=== PATIENT | female | born 2000 | race Caucasian/White ===

== ENCOUNTER 2022-09-17 16:49 | Emergency (ER) | payer BC, SELFPAY ==
--- NOTE | ~2022-09-17 | CT_ITS ---
EXAMINATION: CT ABDOMEN AND PELVIS WITHOUT CONTRAST CLINICAL INFORMATION: Right-sided flank pain. COMPARISON: None available. TECHNIQUE: Multidetector volumetric imaging was performed from the superior aspect of the liver through the pubic symphysis. Sagittal and coronal reformatted images were obtained on the technologist's workstation. This CT examination was performed using dose optimization techniques as appropriate, variously including the following: *Automated exposure control *Adjustment of mA and/or kV according to patient size (this includes techniques or standardized protocols for targeted exams where dose is matched to indication/reason for exam; i.e. extremities or head) *Use of iterative reconstruction technique DLP: 881 mGy-cm FINDINGS: LUNG BASES: The visualized lung bases are unremarkable. LIVER, GALLBLADDER, AND BILIARY TREE: The liver is normal in size, shape, and attenuation. No focal hepatic lesion or biliary ductal dilatation is present. The gallbladder is unremarkable with no evidence of radiopaque gallstones, gallbladder wall thickening, or obvious pericholecystic inflammatory changes. PANCREAS: Unremarkable. SPLEEN: Unremarkable. ADRENAL GLANDS: Unremarkable. KIDNEYS AND URETERS: The kidneys are normal in size, shape, and attenuation. No hydronephrosis, hydroureter, or calculi seen. No perinephric stranding. BLADDER: Unremarkable. GASTROINTESTINAL TRACT: No acute abnormality. There is no bowel wall thickening /edema. There is no bowel obstruction. There is a large volume of stool in the colon. The appendix is normal . The small bowel loops are unremarkable. The stomach is normal. There is no hiatal hernia. ABDOMINAL WALL: No significant hernia is appreciated. LYMPH NODES: Normal. VASCULAR: Unremarkable. PELVIC VISCERA: Unremarkable. OSSEOUS STRUCTURES: Unremarkable. CT/CT abdomen pelvis wo IV con IMPRESSION: No significant abnormality. Fleischner guidelines were followed.
[2022-09-17 16:59] VITALS: BP 124/70; PULSE 97; RESP 16; TEMP 36.8; O2SAT 97; BMI 44.2
--- NOTE | 2022-09-17 17:07 | ED_ITS ---
HPI - Female Genitourinary General Chief complaint: Urogenital-Female Stated complaint: UTI? Time Seen by Provider: 09/17/22 18:35 Related Data Home Medications Medication Instructions Recorded Confirmed fluoxetine 20 mg capsule 1 cap PO QAM 09/18/22 09/18/22 norethindrone acetate 1.5 1 tab PO DAILY 09/18/22 09/18/22 mg-ethinyl estradiol 30 mcg tablet (Junel) Allergies Allergy/AdvReac Type Severity Reaction Status Date / Time No Known Allergies Allergy Verified 09/17/22 17:02 [facility] Past Medical History Medical History (Updated 09/18/22 @ 21:26 by Pancho Iniguez MD) Prediabetes Surgical History (Updated 09/18/22 @ 21:27 by Pancho Iniguez MD) No pertinent past surgical history Social History Social History (Updated 09/18/22 @ 21:38 by Pancho Iniguez MD) Household Members: None and Other Household Members Other:: college room mate Housing: Apartment Do you presently have visiting nurse or other home services: No Alcohol intake: current Patient Tobacco Use Status: Never used Tobacco Use of substances other than those prescribed or required for medical reasons: Yes Substance Use Type: Marijuana Currently Displaying Signs/Symptoms of Drug Intoxication Withdrawal: No Have you been hit, kicked, punched, or otherwise hurt by someone within the past year? If so, by whom?: No Do you feel safe in your current relationship?: Yes Is there a partner from a previous relationship who is making you feel unsafe now?: No Are you made to feel afraid or neglected: No Advance Directives: No Advance Directives Information Provided: Yes Do you have thoughts of harming others: None Do you have a plan to hurt others: No Plan Recently lost weight without trying: Unsure Nutrition Risks: No Nutritional Risk Patient : No : No Poor oral hygiene: No service: No Physical Exam Vital Signs: Vital Signs: Last Vital Signs Temp 98.7 F 09/17/22 23:40 Pulse 105 H 09/17/22 23:40 Resp 12 09/17/22 23:40 BP 139/78 09/17/22 23:40 Pulse Ox 98 09/17/22 23:40 O2 Del Method 09/17/22 23:40 BMI result Body Mass Index 44.2 Course Course Course Narrative: RME performed by Cathy Dupree PA-C. Patient is a 22 year old female presenting to the emergency department with UTI symptoms. Patient states that she has had these symptoms for a month and is now having bilateral flank pain. Patient states that she was seen at the urgent care who said she had a urinary infection but recommended she come to the hospital to have pyelonephritis ruled out. Patient states that she is able to tolerate PO fluids just fine. Labs + UA ordered. Patient placed back in the waiting room pending results and room availability. Patient was evaluated and seen by Dr. Mccord who discharged the patient per his own signed note. Medications Administered Discontinued Medications Generic Name Dose Route Start Last Admin Trade Name Freq PRN Reason Stop Dose Admin Sodium Chloride 1,000 mls @ 999 mls/hr 09/17/22 19:15 09/17/22 23:02 Ns IV 09/17/22 20:15 Infused .Q1H1M KALE Infusion Ceftriaxone Sodium 1 gm/ 50 mls @ 100 mls/hr 09/17/22 22:31 09/17/22 23:49 Sodium Chloride IV 09/17/22 23:00 Infused ONCE ONE Infusion Sodium Chloride 1,000 mls @ 999 mls/hr 09/17/22 22:45 09/17/22 23:49 Ns IV 09/17/22 23:45 Infused .Q1H1M KALE Infusion Ketorolac Tromethamine 30 mg 09/17/22 19:02 09/17/22 19:23 Ketorolac Tromethamine 30 Mg/Ml Vial IVPUSH 09/17/22 19:03 30 mg ONCE ONE Administration Ondansetron HCl 4 mg 09/17/22 19:02 09/17/22 19:23 Ondansetron Hcl 4 Mg/2 Ml Vial IVPUSH 09/17/22 19:03 4 mg ONCE ONE Administration Ondansetron HCl 4 mg 09/17/22 22:34 09/17/22 23:05 Ondansetron Hcl 4 Mg/2 Ml Vial IVPUSH 09/17/22 22:35 4 mg ONCE ONE Administration Medical Decision Making Lab Data 09/17/22 17:26 09/17/22 17:26 Labs: Lab Results 09/17/22 09/17/22 09/17/22 Range/Units 17:26 17:26 19:52 WBC 10.9 H (4.8-10.8) X10*3/uL RBC 4.83 (4.20-5.50) X10*6/uL Hgb 12.9 (12.0-16.0) g/dl Hct 40.0 (37.0-47.0) % MCV 82.8 (80.0-98.0) fL MCH 26.7 L (27.0-33.0) pg MCHC 32.3 (31.0-35.0) g/dl RDW 14.6 (11.0-16.0) % Plt Count 235 (160-400) X10*3/uL MPV 10.4 (9.4-12.3) fL Immature Gran % (Auto) 0.7 H (0.0-0.4) % Neut % (Auto) 77.3 H (45-73) % Lymph % (Auto) 13.3 L (20-40) % [place] % (Auto) 8.1 (2-11) % Eos % (Auto) 0.2 (0-4) % Baso % (Auto) 0.4 (0-2) % Lymph # (Auto) 1.5 (1.2-4.9) X10*3/uL [place] # (Auto) 0.9 (0.1-1.2) X10*3/uL Eos # (Auto) 0.0 (0.0-0.4) X10*3/uL Baso # (Auto) 0.0 (0.0-0.2) X10*3/uL Abs Immat Gran (auto) 0.08 H (0.00-0.03) X10*3/uL Absolute Neuts (auto) 8.4 H (2.0-8.3) x10*3/uL Absolute Nucleated RBC 0.000 (0.0-0.012) X10*3/uL Nucleated RBC % (auto) 0.0 (0.0-0.2) /100WBC Sodium 139 (135-145) mmol/L Potassium 4.1 (3.3-5.1) mmol/L Chloride 103 (96-108) mmol/L Carbon Dioxide 25 (22-29) mmol/L Anion Gap 15 (12-20) BUN 10 (9-16) mg/dL Creatinine 0.76 (0.5-1.4) mg/dL Estim Creat Clear Calc 148.4 Estimated GFR > 60 Random Glucose 80 (60-115) mg/dL Lactic Acid (0.5-2.0) mmol/L Calcium 9.0 (8.4-10.2) mg/dL Magnesium 1.8 (1.6-2.6) mg/dL Total Bilirubin 0.5 (0.0-1.0) mg/dL AST 13 (5-31) U/L ALT 18 (0-31) U/L Alkaline Phosphatase 83 (39-117) U/L Total Protein 6.9 (6.5-8.0) g/dL Albumin 4.1 (3.5-5.0) g/dL Beta HCG, Quant < 2 mIU/mL Urine Color Yellow Urine Appearance Cloudy Urine pH 6.5 (5.0-9.0) Ur Specific [place] 1.020 (1.005-1.025) Urine Protein 30 (1+) H (Neg-Trace) mg/dL Urine Glucose (UA) Negative (Negative) mg/dL Urine Ketones Trace (Negative) mg/dL Urine Blood Small (1+) H (Negative) Urine Nitrite Negative (Negative) Ur Leukocyte Esterase Large (3+) H (Negative) Urine RBC 6-10 H (0-2) /HPF Urine WBC >50 H (0-5) /HPF Ur Squamous Epith Cells 0-2 (0-2) /HPF Urine Bacteria 1+ (None Seen) Hyaline Casts 0-2 (0-2) /LPF 09/17/22 Range/Units 22:48 WBC (4.8-10.8) X10*3/uL RBC (4.20-5.50) X10*6/uL Hgb (12.0-16.0) g/dl Hct (37.0-47.0) % MCV (80.0-98.0) fL MCH (27.0-33.0) pg MCHC (31.0-35.0) g/dl RDW (11.0-16.0) % Plt Count (160-400) X10*3/uL MPV (9.4-12.3) fL Immature Gran % (Auto) (0.0-0.4) % Neut % (Auto) (45-73) % Lymph % (Auto) (20-40) % [place] % (Auto) (2-11) % Eos % (Auto) (0-4) % Baso % (Auto) (0-2) % Lymph # (Auto) (1.2-4.9) X10*3/uL [place] # (Auto) (0.1-1.2) X10*3/uL Eos # (Auto) (0.0-0.4) X10*3/uL Baso # (Auto) (0.0-0.2) X10*3/uL Abs Immat Gran (auto) (0.00-0.03) X10*3/uL Absolute Neuts (auto) (2.0-8.3) x10*3/uL Absolute Nucleated RBC (0.0-0.012) X10*3/uL Nucleated RBC % (auto) (0.0-0.2) /100WBC Sodium (135-145) mmol/L Potassium (3.3-5.1) mmol/L Chloride (96-108) mmol/L Carbon Dioxide (22-29) mmol/L Anion Gap (12-20) BUN (9-16) mg/dL Creatinine (0.5-1.4) mg/dL Estim Creat Clear Calc Estimated GFR Random Glucose (60-115) mg/dL Lactic Acid 0.7 (0.5-2.0) mmol/L Calcium (8.4-10.2) mg/dL Magnesium (1.6-2.6) mg/dL Total Bilirubin (0.0-1.0) mg/dL AST (5-31) U/L ALT (0-31) U/L Alkaline Phosphatase (39-117) U/L Total Protein (6.5-8.0) g/dL Albumin (3.5-5.0) g/dL Beta HCG, Quant mIU/mL Urine Color Urine Appearance Urine pH (5.0-9.0) Ur Specific [place] (1.005-1.025) Urine Protein (Neg-Trace) mg/dL Urine Glucose (UA) (Negative) mg/dL Urine Ketones (Negative) mg/dL Urine Blood (Negative) Urine Nitrite (Negative) Ur Leukocyte Esterase (Negative) Urine RBC (0-2) /HPF Urine WBC (0-5) /HPF Ur Squamous Epith Cells (0-2) /HPF Urine Bacteria (None Seen) Hyaline Casts (0-2) /LPF Discharge Plan Discharge Clinical Impression: Pyelonephritis Patient Disposition: Home, Self-Care Instructions: Kidney Infection (ED) Prescriptions: No Action norethindrone ac-eth estradiol [ (21)] 1.5-30 mg-mcg tablet 1 tab PO DAILY fluoxetine 20 mg capsule 1 cap PO QAM Referrals: Physician,Unknown J [Primary Care Provider] - Interventions: ED Discharge Assessment Last Done: 09/17/22 23:49 Discharge Date/Time: 09/17/22 23:50
[2022-09-17 17:30] LABS: MANUAL DIFF FLAG NO
[2022-09-17 17:35] LABS: Basophils Percent Auto 0.4 % (0-2); Eosinophils Percent Auto 0.2 % (0-4); Hemoglobin 12.9 g/dl (12.0-16.0); Imm Gran Abs Auto 0.08 X10*3/uL (0.00-0.03); Imm Gran Pct Auto 0.7 % (0.0-0.4); Lymphocytes Absolute Auto 1.5 X10*3/uL (1.2-4.9); Lymphocytes Percent Auto 13.3 % (20-40); Mean Corpuscular HGB Conc 32.3 g/dl (31.0-35.0); Mean Corpuscular Hemoglobin 26.7 pg (27.0-33.0); Mean Corpuscular Volume 82.8 fL (80.0-98.0); Mean Platelet Volume 10.4 fL (9.4-12.3); Monocytes Absolute Auto 0.9 X10*3/uL (0.1-1.2); Monocytes Percent Auto 8.1 % (2-11); Neutrophils Absolute Auto 8.4 x10*3/uL (2.0-8.3); Neutrophils Percent Auto 77.3 % (45-73); Platelet Count 235 X10*3/uL (160-400); Red Blood Count 4.83 X10*6/uL (4.20-5.50); Red Cell Distribution Width 14.6 % (11.0-16.0); White Blood Count 10.9 X10*3/uL (4.8-10.8)
[2022-09-17 17:54] LABS: Alanine Aminotransferase 18 U/L (0-31); Albumin Level 4.1 g/dL (3.5-5.0); Alkaline Phosphatase 83 U/L (39-117); Anion Gap 15 (12-20); Aspartate Amino Transferase 13 U/L (5-31); Bilirubin Total 0.5 mg/dL (0.0-1.0); Blood Urea Nitrogen 10 mg/dL (9-16); Carbon Dioxide 25 mmol/L (22-29); Chloride 103 mmol/L (96-108); Creatinine Clr Calc Pharmacy 148.4; Estimated Glomerular Filt Rate > 60; Glucose Random 80 mg/dL (60-115); Magnesium 1.8 mg/dL (1.6-2.6); Potassium 4.1 mmol/L (3.3-5.1); Sodium 139 mmol/L (135-145); Total Protein 6.9 g/dL (6.5-8.0)
[2022-09-17 17:55] LABS: HCG Quantitative < 2 mIU/mL
--- NOTE | 2022-09-17 19:02 | ED.FEMALEGU ---
HPI - Female Genitourinary General Chief complaint: Urogenital-Female Stated complaint: UTI? Time Seen by Provider: 09/17/22 18:35 Related Data Previous Rx's Medication Instructions Recorded ibuprofen 400 mg tablet 400 mg PO Q6H PRN pain #20 tabs 09/17/22 ondansetron 4 mg disintegrating 4 mg PO TID PRN nausea and 09/17/22 tablet vomiting 5 days #10 tabs sulfamethoxazole 800 1 tab PO BID pyelo 10 days #20 tabs 09/17/22 mg-trimethoprim 160 mg tablet (Bactrim DS) Allergies Allergy/AdvReac Type Severity Reaction Status Date / Time No Known Allergies Allergy Verified 09/17/22 17:02 PMF Social History Social History Advance Directives: No Advance Directives Information Provided: No Physical Exam Vital Signs: Vital Signs: Last Vital Signs Temp 98.3 F 09/17/22 16:59 Pulse 97 09/17/22 16:59 Resp 16 09/17/22 16:59 BP 124/70 09/17/22 16:59 Pulse Ox 97 09/17/22 16:59 O2 Del Method 09/17/22 16:59 BMI result Body Mass Index 44.2 Medications Administered Generic Name Dose Route Start Last Admin Trade Name Freq PRN Reason Stop Dose Admin Sodium Chloride 1,000 mls @ 999 mls/hr 09/17/22 22:45 09/17/22 23:05 Ns IV 09/17/22 23:45 999 mls/hr .Q1H1M KALE Administration Discontinued Medications Generic Name Dose Route Start Last Admin Trade Name Freq PRN Reason Stop Dose Admin Sodium Chloride 1,000 mls @ 999 mls/hr 09/17/22 19:15 09/17/22 23:02 Ns IV 09/17/22 20:15 Infused .Q1H1M KALE Infusion Ceftriaxone Sodium 1 gm/ 50 mls @ 100 mls/hr 09/17/22 22:31 09/17/22 23:05 Sodium Chloride IV 09/17/22 23:00 100 mls/hr ONCE ONE Administration Ketorolac Tromethamine 30 mg 09/17/22 19:02 09/17/22 19:23 Ketorolac Tromethamine 30 Mg/Ml Vial IVPUSH 09/17/22 19:03 30 mg ONCE ONE Administration Ondansetron HCl 4 mg 09/17/22 19:02 09/17/22 19:23 Ondansetron Hcl 4 Mg/2 Ml Vial IVPUSH 09/17/22 19:03 4 mg ONCE ONE Administration Ondansetron HCl 4 mg 09/17/22 22:34 09/17/22 23:05 Ondansetron Hcl 4 Mg/2 Ml Vial IVPUSH 09/17/22 22:35 4 mg ONCE ONE Administration Medical Decision Making Medical Decision Making [facility] Narrative: Positive nausea positive flank pain. CT scan of the abdomen pelvis did not show any acute evidence of kidney stone. No appendicitis noted. No obstruction no abscess no perforation. Patient's urine grossly infected. Likely has pyelonephritis. Lactate is normal no evidence for sepsis given IV fluids here in the emergency department. Given Rocephin Zofran for nausea pain medication with good relief of symptoms. Will discharge patient home antibiotics. Close follow-up on outpatient basis Zofran for nausea in stable condition Differential Diagnosis Differential Diagnoses: The differential diagnosis associated with the presentation includes Kidney stone, shingles, obstruction, abscess, appendicitis, ectopic Lab Data [facility] Lab Attestation statement: I reviewed the patient's lab results. 09/17/22 17:26 09/17/22 17:26 Labs: Lab Results 09/17/22 09/17/22 09/17/22 Range/Units 17:26 17:26 19:52 WBC 10.9 H (4.8-10.8) X10*3/uL RBC 4.83 (4.20-5.50) X10*6/uL Hgb 12.9 (12.0-16.0) g/dl Hct 40.0 (37.0-47.0) % MCV 82.8 (80.0-98.0) fL MCH 26.7 L (27.0-33.0) pg MCHC 32.3 (31.0-35.0) g/dl RDW 14.6 (11.0-16.0) % Plt Count 235 (160-400) X10*3/uL MPV 10.4 (9.4-12.3) fL Immature Gran % (Auto) 0.7 H (0.0-0.4) % Neut % (Auto) 77.3 H (45-73) % Lymph % (Auto) 13.3 L (20-40) % [place] % (Auto) 8.1 (2-11) % Eos % (Auto) 0.2 (0-4) % Baso % (Auto) 0.4 (0-2) % Lymph # (Auto) 1.5 (1.2-4.9) X10*3/uL [place] # (Auto) 0.9 (0.1-1.2) X10*3/uL Eos # (Auto) 0.0 (0.0-0.4) X10*3/uL Baso # (Auto) 0.0 (0.0-0.2) X10*3/uL Abs Immat Gran (auto) 0.08 H (0.00-0.03) X10*3/uL Absolute Neuts (auto) 8.4 H (2.0-8.3) x10*3/uL Absolute Nucleated RBC 0.000 (0.0-0.012) X10*3/uL Nucleated RBC % (auto) 0.0 (0.0-0.2) /100WBC Sodium 139 (135-145) mmol/L Potassium 4.1 (3.3-5.1) mmol/L Chloride 103 (96-108) mmol/L Carbon Dioxide 25 (22-29) mmol/L Anion Gap 15 (12-20) BUN 10 (9-16) mg/dL Creatinine 0.76 (0.5-1.4) mg/dL Estim Creat Clear Calc 148.4 Estimated GFR > 60 Random Glucose 80 (60-115) mg/dL Lactic Acid (0.5-2.0) mmol/L Calcium 9.0 (8.4-10.2) mg/dL Magnesium 1.8 (1.6-2.6) mg/dL Total Bilirubin 0.5 (0.0-1.0) mg/dL AST 13 (5-31) U/L ALT 18 (0-31) U/L Alkaline Phosphatase 83 (39-117) U/L Total Protein 6.9 (6.5-8.0) g/dL Albumin 4.1 (3.5-5.0) g/dL Beta HCG, Quant < 2 mIU/mL Urine Color Yellow Urine Appearance Cloudy Urine pH 6.5 (5.0-9.0) Ur Specific [place] 1.020 (1.005-1.025) Urine Protein 30 (1+) H (Neg-Trace) mg/dL Urine Glucose (UA) Negative (Negative) mg/dL Urine Ketones Trace (Negative) mg/dL Urine Blood Small (1+) H (Negative) Urine Nitrite Negative (Negative) Ur Leukocyte Esterase Large (3+) H (Negative) Urine RBC 6-10 H (0-2) /HPF Urine WBC >50 H (0-5) /HPF Ur Squamous Epith Cells 0-2 (0-2) /HPF Urine Bacteria 1+ (None Seen) Hyaline Casts 0-2 (0-2) /LPF 09/17/22 Range/Units 22:48 WBC (4.8-10.8) X10*3/uL RBC (4.20-5.50) X10*6/uL Hgb (12.0-16.0) g/dl Hct (37.0-47.0) % MCV (80.0-98.0) fL MCH (27.0-33.0) pg MCHC (31.0-35.0) g/dl RDW (11.0-16.0) % Plt Count (160-400) X10*3/uL MPV (9.4-12.3) fL Immature Gran % (Auto) (0.0-0.4) % Neut % (Auto) (45-73) % Lymph % (Auto) (20-40) % [place] % (Auto) (2-11) % Eos % (Auto) (0-4) % Baso % (Auto) (0-2) % Lymph # (Auto) (1.2-4.9) X10*3/uL [place] # (Auto) (0.1-1.2) X10*3/uL Eos # (Auto) (0.0-0.4) X10*3/uL Baso # (Auto) (0.0-0.2) X10*3/uL Abs Immat Gran (auto) (0.00-0.03) X10*3/uL Absolute Neuts (auto) (2.0-8.3) x10*3/uL Absolute Nucleated RBC (0.0-0.012) X10*3/uL Nucleated RBC % (auto) (0.0-0.2) /100WBC Sodium (135-145) mmol/L Potassium (3.3-5.1) mmol/L Chloride (96-108) mmol/L Carbon Dioxide (22-29) mmol/L Anion Gap (12-20) BUN (9-16) mg/dL Creatinine (0.5-1.4) mg/dL Estim Creat Clear Calc Estimated GFR Random Glucose (60-115) mg/dL Lactic Acid 0.7 (0.5-2.0) mmol/L Calcium (8.4-10.2) mg/dL Magnesium (1.6-2.6) mg/dL Total Bilirubin (0.0-1.0) mg/dL AST (5-31) U/L ALT (0-31) U/L Alkaline Phosphatase (39-117) U/L Total Protein (6.5-8.0) g/dL Albumin (3.5-5.0) g/dL Beta HCG, Quant mIU/mL Urine Color Urine Appearance Urine pH (5.0-9.0) Ur Specific [place] (1.005-1.025) Urine Protein (Neg-Trace) mg/dL Urine Glucose (UA) (Negative) mg/dL Urine Ketones (Negative) mg/dL Urine Blood (Negative) Urine Nitrite (Negative) Ur Leukocyte Esterase (Negative) Urine RBC (0-2) /HPF Urine WBC (0-5) /HPF Ur Squamous Epith Cells (0-2) /HPF Urine Bacteria (None Seen) Hyaline Casts (0-2) /LPF Radiology Impression Discussion of test interpretation with radiology: I have reviewed the radiologist's reading. Discharge Plan Discharge Clinical Impression: Pyelonephritis Patient Disposition: Home, Self-Care Instructions: Kidney Infection (ED) Prescriptions: New ibuprofen 400 mg tablet 400 mg PO Q6H PRN (Reason: pain) Qty: 20 0RF sulfamethoxazole-trimethoprim [Bactrim DS] 800-160 mg tablet 1 tab PO BID 10 Days Qty: 20 0RF ondansetron 4 mg tablet,disintegrating 4 mg PO TID PRN (Reason: nausea and vomiting) 5 Days Qty: 10 0RF Referrals: Physician,Unknown J [Primary Care Provider] -
[2022-09-17] MEDS: Ketorolac Tromethamine 30 MG/ML VIAL IVPUSH (19:23)
[2022-09-17] MEDS: ondansetron HCL 4 MG/2 ML VIAL IVPUSH ×2 (19:23→23:05)
[2022-09-17] MEDS: 0.9 % Sodium Chloride 1,000 ML 999 ML IV ×2 (19:23→23:05)
--- NOTE | 2022-09-17 19:55 | PC.NURSE ---
provider requesting urine to be recollected, pedro madera educated pt on how to obtain urine specimen urine to be sent to lab once notified by pt that specimen has been collected
[2022-09-17 21:28] LABS: Appearance Urine Cloudy; Color Urine Yellow; Glucose Urine UA Negative (Negative); Leukocyte Esterase Urine Large (3+) (Negative); Nitrite Urine Negative (Negative); PH 6.5 (5.0-9.0); UMIC TRIGGER UACC YES; Urine Blood Small (1+) (Negative); Urine Ketones Trace mg/dL (Negative); Urine Protein 30 (1+) mg/dL (Neg-Trace)
[2022-09-17 22:38] LABS: Bacteria Urine 1+ (None Seen); Hyaline Casts Urine 0-2 /LPF (0-2); Squamous Epithelial Cell Urine 0-2 /HPF (0-2); UACC Culture Trigger YES; WBC Urine >50 /HPF (0-5)
[2022-09-17 23:05] LABS: Lactic Acid 0.7 mmol/L (0.5-2.0)
[2022-09-17] MEDS: cefTRIAXone sodium 1 GM in 0.9 % Sodium Chloride 50 ML IV (23:05)
[2022-09-17 23:40] VITALS: BP 139/78; PULSE 105; RESP 12; TEMP 37.1; O2SAT 98
--- NOTE | 2022-09-17 23:46 | PC.NURSE ---
IV line removed with no complications. Pt tolerated well. Discharge instructions reviewed with pt. Pt verbalizes understanding.
--- NOTE | 2022-09-18 14:17 | PC.NURSE ---
Critical received by Micro 1/2 blood cultures + for gram - rods. MLP aware.
== END 2022-09-17 23:50 | disposition home or self-care (01) ==
PROVIDERS: Physician Assistant Medical; Emergency Provider Emergency Medicine Emergency Medical Services
DX: N10 Acute pyelonephritis (principal); Z79.899 Other long term (current) drug therapy
CPT/HCPCS: 36415; 74176; 80053; 81001; 83605; 83735; 84702; 85025; 87040; 87077; 87086; 87088; 87186; 87205; 96361; 96365; 96375; 96376; 99284; J0696; J1885; J2405

== ENCOUNTER 2022-09-18 17:06 | Inpatient (IN) | payer BC, SELFPAY ==
[2022-09-18 17:13] VITALS: BP 126/60; PULSE 104; RESP 17; TEMP 37.1; O2SAT 98; BMI 44.4
--- NOTE | 2022-09-18 17:13 | ED.GENADULT ---
HPI - General Adult General Chief complaint: Recheck/Abnormal Lab/Rx <AVANI Quinteros - Last Filed: 09/18/22 18:47> Stated complaint: bloodwork <AVANI Quinteros - Last Filed: 09/18/22 18:47> Time Seen by Provider: 09/18/22 19:34 <AVANI Quinteros - Last Filed: 09/18/22 18:47> Source: patient <Amparo Houser MD - Last Filed: 09/18/22 19:59> Mode of arrival: ambulatory <Amparo Houser MD - Last Filed: 09/18/22 19:59> Limitations: no limitations <Amparo Houser MD - Last Filed: 09/18/22 19:59> History of Present Illness HPI narrative: Patient comes to the emergency room complaining of blood cultures testing positive for Gram-negative rods. Patient was seen here 4 days ago, patient was treated for pyelonephritis with Bactrim. Patient states that overall she does feel a bit better but still having flank pain, no fever or chills, no hematuria. Patient was called home and instructed to come back to the emergency room for IV antibiotics and admission. <Amparo Houser MD - Last Filed: 09/18/22 19:59> Related Data Home medications: Previous Rx's Medication Instructions Recorded ibuprofen 400 mg tablet 400 mg PO Q6H PRN pain #20 tabs 09/17/22 ondansetron 4 mg disintegrating 4 mg PO TID PRN nausea and 09/17/22 tablet vomiting 5 days #10 tabs sulfamethoxazole 800 1 tab PO BID pyelo 10 days #20 tabs 09/17/22 mg-trimethoprim 160 mg tablet (Bactrim DS) <AVANI Quinteros - Last Filed: 09/18/22 18:47> Allergies/adverse reactions: Allergies Allergy/AdvReac Type Severity Reaction Status Date / Time No Known Allergies Allergy Verified 09/17/22 17:02 <AVANI Quinteros - Last Filed: 09/18/22 18:47> Review of Systems Review of Systems: Constitutional : No Weight loss, No Fever, No Chills, No Night Sweats, No Fatigue, No Malaise ENT/Mouth : No Hearing loss, No Ear Pain, No Nasal Congestion, No Sinus Pain, No Hoarseness, No sore throat, No Rhinorrhea, No Swallowing Difficulty Eyes: No Eye Pain, No Swelling, No Redness, No Foreign Body, No Discharge, No Vision Changes Cardiovascular : No Chest Pain, No SOB, No Dyspnea on Exertion, No Orthopnea, No Edema, No Palpitations Respiratory : No Cough, No Sputum, No Wheezing, No Smoke Exposure, No Dyspnea Gastrointestinal : No Nausea, No Vomiting, No Diarrhea, No Constipation, No abdominal Pain, No Hematochezia, No Melena Genitourinary : no irregular bleeding, No Dysuria, No Urinary Frequency, No Hematuria, No Urinary Incontinence, No Urgency, complaining of ongoing bilateral Flank Pain, No Urinary Flow Changes, No Hesitancy Musculoskeletal : No joint pain, No Myalgias, No Joint Swelling Skin : No Skin Lesions, No rash Neuro : No Weakness, No Numbness, No Paresthesias, No Loss of Consciousness, No Dizziness, No Headache Psych : No Anxiety/Panic, No Depression, No SI/HI/AH/VH, No Social Issues, Heme/Lymph: No Bruising, No Bleeding,No Lymphadenopathy Endocrine : No Polyuria, No Polydipsia, No Temperature Intolerance <Amparo Houser MD - Last Filed: 09/18/22 19:59> FOR[facility]LY [facility] Social History Social History: Social History Advance Directives: No Advance Directives Information Provided: Yes <AVANI Quinteros - Last Filed: 09/18/22 18:47> Physical Exam ED Vital Signs: Vital Signs - 24 hr 09/18/22 17:13 Temperature 98.8 F Pulse Rate 104 H Respiratory Rate 17 Blood Pressure 126/60 Pulse Oximetry 98 Oxygen Delivery Method Room Air BMI result Body Mass Index 44.4 <AVANI Quinteros - Last Filed: 09/18/22 18:47> Vital Signs - 24 hr 09/18/22 17:13 Temperature 98.8 F Pulse Rate 104 H Respiratory Rate 17 Blood Pressure 126/60 Pulse Oximetry 98 Oxygen Delivery Method Room Air BMI result Body Mass Index 44.4 <Amparo Houser MD - Last Filed: 09/18/22 19:59> Const Other: Appearance: Alert. Oriented X3. No acute distress. Eyes: Pupils equal, round and reactive to light. ENT: Pharynx normal. Neck: Normal inspection. Neck supple. No lymph nodes noted. No crepitus CVS: Normal heart rate and rhythm. Pulses normal. Normal S1 and S2 Respiratory: No respiratory distress. Breath sounds normal. No Wheezing. No rales Abdomen: Soft and nontender. No rigidity. No distention. Bilateral flank pain Skin: Skin warm and dry. Normal skin color. Normal skin turgor. Extremities: No lower extremity edema. No Lacerations. No Rash Neuro: Oriented X 3. No motor deficit. No sensory deficit. Moving all extremities. No slurred speech. CN 2 through 12 grossly intact Psych: calm, cooperative, normal affect <Amparo Houser MD - Last Filed: 09/18/22 19:59> Course Course Course Narrative: This is an RME: Additional HPI, ROS, PE not included below will be deferred to primary provider. 22-year-old female presents for positive blood cultures, received a call, cultures were drawn here at [facility] Emergency Department on 09/17, patient presented with urinary symptom, since then symptoms have improved, patient was discharged home on Bactrim. Patient now complaining of right flank pain since but worsening. No concerns for STDS According to chart review blood cultures grew Gram-negative rods in 1/2 sets. Was advised to come in by ANUJA Physical exam benign. Plan repeat urine, blood cultures, lactic acid and basic labs. Will obtain CT of the abdomen and pelvis with contrast to rule out pylo although less likely <AVANI Quinteros - Last Filed: 09/18/22 18:47> Medications Administered Discontinued Medications Generic Name Dose Route Start Last Admin Trade Name Freq PRN Reason Stop Dose Admin Sodium Chloride 1,000 mls @ 999 mls/hr 09/18/22 17:30 09/18/22 19:42 Ns IV 09/18/22 18:30 999 mls/hr .Q1H1M KALE Administration <AVANI Quinteros - Last Filed: 09/18/22 18:47> Medications Administered Discontinued Medications Generic Name Dose Route Start Last Admin Trade Name Freq PRN Reason Stop Dose Admin Sodium Chloride 1,000 mls @ 999 mls/hr 09/18/22 17:30 09/18/22 19:42 Ns IV 09/18/22 18:30 999 mls/hr .Q1H1M KALE Administration <Amparo Houser MD - Last Filed: 09/18/22 19:59> Medical Decision Making Medical Decision Making [facility] Narrative: -patient will be given IV antibiotics, ceftriaxone and fluids. -patient agreeable with plan to be admitted -I discussed the patient with Dr. Iniguez, patient will be admitted <Amparo Houser MD - Last Filed: 09/18/22 19:59> Differential Diagnosis Differential Diagnoses: The differential diagnosis associated with the presentation includes (UTI, pyelonephritis) <Amparo Houser MD - Last Filed: 09/18/22 19:59> Admission/Observation Consideration of admission/observation: Escalation of care including admission/observation considered <Amparo Houser MD - Last Filed: 09/18/22 19:59> Consult Healthcare Provider Management of the patient was discussed with: Hospitalist <mAparo Houser MD - Last Filed: 09/18/22 19:59> Lab Data [facility] Lab Attestation statement: I reviewed the patient's lab results. <Amparo Houser MD - Last Filed: 09/18/22 19:59> Result Diagrams: 09/18/22 17:35 09/18/22 17:35 <AVANI Quinteros - Last Filed: 09/18/22 18:47> Labs: Lab Results 09/18/22 09/18/22 09/18/22 Range/Units 17:35 17:35 17:35 WBC 9.2 (4.8-10.8) X10*3/uL RBC 4.47 (4.20-5.50) X10*6/uL Hgb 12.1 (12.0-16.0) g/dl Hct 37.2 (37.0-47.0) % MCV 83.2 (80.0-98.0) fL MCH 27.1 (27.0-33.0) pg MCHC 32.5 (31.0-35.0) g/dl RDW 14.7 (11.0-16.0) % Plt Count 233 (160-400) X10*3/uL MPV 10.8 (9.4-12.3) fL Immature Gran % (Auto) 0.2 (0.0-0.4) % Neut % (Auto) 77.1 H (45-73) % Lymph % (Auto) 14.3 L (20-40) % [place] % (Auto) 7.6 (2-11) % Eos % (Auto) 0.4 (0-4) % Baso % (Auto) 0.4 (0-2) % Lymph # (Auto) 1.3 (1.2-4.9) X10*3/uL [place] # (Auto) 0.7 (0.1-1.2) X10*3/uL Eos # (Auto) 0.0 (0.0-0.4) X10*3/uL Baso # (Auto) 0.0 (0.0-0.2) X10*3/uL Abs Immat Gran (auto) 0.02 (0.00-0.03) X10*3/uL Absolute Neuts (auto) 7.1 (2.0-8.3) x10*3/uL Absolute Nucleated RBC 0.000 (0.0-0.012) X10*3/uL Nucleated RBC % (auto) 0.0 (0.0-0.2) /100WBC Sodium 137 (135-145) mmol/L Potassium 3.8 (3.3-5.1) mmol/L Chloride 104 (96-108) mmol/L Carbon Dioxide 23 (22-29) mmol/L Anion Gap 14 (12-20) BUN 7 L (9-16) mg/dL Creatinine 0.68 (0.5-1.4) mg/dL Estim Creat Clear Calc 166.3 Estimated GFR > 60 Random Glucose 104 (60-115) mg/dL Lactic Acid 0.9 (0.5-2.0) mmol/L Calcium 8.4 D (8.4-10.2) mg/dL Magnesium 1.9 (1.6-2.6) mg/dL Total Bilirubin 0.6 (0.0-1.0) mg/dL AST 16 (5-31) U/L ALT 20 (0-31) U/L Alkaline Phosphatase 76 (39-117) U/L Total Protein 6.3 L (6.5-8.0) g/dL Albumin 3.9 (3.5-5.0) g/dL Urine Color Urine Appearance Urine pH (5.0-9.0) Ur Specific [place] (1.005-1.025) Urine Protein (Neg-Trace) mg/dL Urine Glucose (UA) (Negative) mg/dL Urine Ketones (Negative) mg/dL Urine Blood (Negative) Urine Nitrite (Negative) Ur Leukocyte Esterase (Negative) Urine RBC (0-2) /HPF Urine WBC (0-5) /HPF Ur Squamous Epith Cells (0-2) /HPF Urine Bacteria (None Seen) Hyaline Casts (0-2) /LPF 09/18/22 Range/Units 17:53 WBC (4.8-10.8) X10*3/uL RBC (4.20-5.50) X10*6/uL Hgb (12.0-16.0) g/dl Hct (37.0-47.0) % MCV (80.0-98.0) fL MCH (27.0-33.0) pg MCHC (31.0-35.0) g/dl RDW (11.0-16.0) % Plt Count (160-400) X10*3/uL MPV (9.4-12.3) fL Immature Gran % (Auto) (0.0-0.4) % Neut % (Auto) (45-73) % Lymph % (Auto) (20-40) % [place] % (Auto) (2-11) % Eos % (Auto) (0-4) % Baso % (Auto) (0-2) % Lymph # (Auto) (1.2-4.9) X10*3/uL [place] # (Auto) (0.1-1.2) X10*3/uL Eos # (Auto) (0.0-0.4) X10*3/uL Baso # (Auto) (0.0-0.2) X10*3/uL Abs Immat Gran (auto) (0.00-0.03) X10*3/uL Absolute Neuts (auto) (2.0-8.3) x10*3/uL Absolute Nucleated RBC (0.0-0.012) X10*3/uL Nucleated RBC % (auto) (0.0-0.2) /100WBC Sodium (135-145) mmol/L Potassium (3.3-5.1) mmol/L Chloride (96-108) mmol/L Carbon Dioxide (22-29) mmol/L Anion Gap (12-20) BUN (9-16) mg/dL Creatinine (0.5-1.4) mg/dL Estim Creat Clear Calc Estimated GFR Random Glucose (60-115) mg/dL Lactic Acid (0.5-2.0) mmol/L Calcium (8.4-10.2) mg/dL Magnesium (1.6-2.6) mg/dL Total Bilirubin (0.0-1.0) mg/dL AST (5-31) U/L ALT (0-31) U/L Alkaline Phosphatase (39-117) U/L Total Protein (6.5-8.0) g/dL Albumin (3.5-5.0) g/dL Urine Color Yellow Urine Appearance Clear Urine pH 8.5 (5.0-9.0) Ur Specific [place] 1.010 (1.005-1.025) Urine Protein Negative (Neg-Trace) mg/dL Urine Glucose (UA) Negative (Negative) mg/dL Urine Ketones Negative (Negative) mg/dL Urine Blood Negative (Negative) Urine Nitrite Negative (Negative) Ur Leukocyte Esterase Small (1+) H (Negative) Urine RBC 0-2 (0-2) /HPF Urine WBC 6-10 H (0-5) /HPF Ur Squamous Epith Cells 0-2 (0-2) /HPF Urine Bacteria None Seen (None Seen) Hyaline Casts 0-2 (0-2) /LPF <AVANI Quinteros - Last Filed: 09/18/22 18:47> Lab Results 09/18/22 09/18/22 09/18/22 Range/Units 17:35 17:35 17:35 WBC 9.2 (4.8-10.8) X10*3/uL RBC 4.47 (4.20-5.50) X10*6/uL Hgb 12.1 (12.0-16.0) g/dl Hct 37.2 (37.0-47.0) % MCV 83.2 (80.0-98.0) fL MCH 27.1 (27.0-33.0) pg MCHC 32.5 (31.0-35.0) g/dl RDW 14.7 (11.0-16.0) % Plt Count 233 (160-400) X10*3/uL MPV 10.8 (9.4-12.3) fL Immature Gran % (Auto) 0.2 (0.0-0.4) % Neut % (Auto) 77.1 H (45-73) % Lymph % (Auto) 14.3 L (20-40) % [place] % (Auto) 7.6 (2-11) % Eos % (Auto) 0.4 (0-4) % Baso % (Auto) 0.4 (0-2) % Lymph # (Auto) 1.3 (1.2-4.9) X10*3/uL [place] # (Auto) 0.7 (0.1-1.2) X10*3/uL Eos # (Auto) 0.0 (0.0-0.4) X10*3/uL Baso # (Auto) 0.0 (0.0-0.2) X10*3/uL Abs Immat Gran (auto) 0.02 (0.00-0.03) X10*3/uL Absolute Neuts (auto) 7.1 (2.0-8.3) x10*3/uL Absolute Nucleated RBC 0.000 (0.0-0.012) X10*3/uL Nucleated RBC % (auto) 0.0 (0.0-0.2) /100WBC Sodium 137 (135-145) mmol/L Potassium 3.8 (3.3-5.1) mmol/L Chloride 104 (96-108) mmol/L Carbon Dioxide 23 (22-29) mmol/L Anion Gap 14 (12-20) BUN 7 L (9-16) mg/dL Creatinine 0.68 (0.5-1.4) mg/dL Estim Creat Clear Calc 166.3 Estimated GFR > 60 Random Glucose 104 (60-115) mg/dL Lactic Acid 0.9 (0.5-2.0) mmol/L Calcium 8.4 D (8.4-10.2) mg/dL Magnesium 1.9 (1.6-2.6) mg/dL Total Bilirubin 0.6 (0.0-1.0) mg/dL AST 16 (5-31) U/L ALT 20 (0-31) U/L Alkaline Phosphatase 76 (39-117) U/L Total Protein 6.3 L (6.5-8.0) g/dL Albumin 3.9 (3.5-5.0) g/dL Urine Color Urine Appearance Urine pH (5.0-9.0) Ur Specific [place] (1.005-1.025) Urine Protein (Neg-Trace) mg/dL Urine Glucose (UA) (Negative) mg/dL Urine Ketones (Negative) mg/dL Urine Blood (Negative) Urine Nitrite (Negative) Ur Leukocyte Esterase (Negative) Urine RBC (0-2) /HPF Urine WBC (0-5) /HPF Ur Squamous Epith Cells (0-2) /HPF Urine Bacteria (None Seen) Hyaline Casts (0-2) /LPF 09/18/22 Range/Units 17:53 WBC (4.8-10.8) X10*3/uL RBC (4.20-5.50) X10*6/uL Hgb (12.0-16.0) g/dl Hct (37.0-47.0) % MCV (80.0-98.0) fL MCH (27.0-33.0) pg MCHC (31.0-35.0) g/dl RDW (11.0-16.0) % Plt Count (160-400) X10*3/uL MPV (9.4-12.3) fL Immature Gran % (Auto) (0.0-0.4) % Neut % (Auto) (45-73) % Lymph % (Auto) (20-40) % [place] % (Auto) (2-11) % Eos % (Auto) (0-4) % Baso % (Auto) (0-2) % Lymph # (Auto) (1.2-4.9) X10*3/uL [place] # (Auto) (0.1-1.2) X10*3/uL Eos # (Auto) (0.0-0.4) X10*3/uL Baso # (Auto) (0.0-0.2) X10*3/uL Abs Immat Gran (auto) (0.00-0.03) X10*3/uL Absolute Neuts (auto) (2.0-8.3) x10*3/uL Absolute Nucleated RBC (0.0-0.012) X10*3/uL Nucleated RBC % (auto) (0.0-0.2) /100WBC Sodium (135-145) mmol/L Potassium (3.3-5.1) mmol/L Chloride (96-108) mmol/L Carbon Dioxide (22-29) mmol/L Anion Gap (12-20) BUN (9-16) mg/dL Creatinine (0.5-1.4) mg/dL Estim Creat Clear Calc Estimated GFR Random Glucose (60-115) mg/dL Lactic Acid (0.5-2.0) mmol/L Calcium (8.4-10.2) mg/dL Magnesium (1.6-2.6) mg/dL Total Bilirubin (0.0-1.0) mg/dL AST (5-31) U/L ALT (0-31) U/L Alkaline Phosphatase (39-117) U/L Total Protein (6.5-8.0) g/dL Albumin (3.5-5.0) g/dL Urine Color Yellow Urine Appearance Clear Urine pH 8.5 (5.0-9.0) Ur Specific [place] 1.010 (1.005-1.025) Urine Protein Negative (Neg-Trace) mg/dL Urine Glucose (UA) Negative (Negative) mg/dL Urine Ketones Negative (Negative) mg/dL Urine Blood Negative (Negative) Urine Nitrite Negative (Negative) Ur Leukocyte Esterase Small (1+) H (Negative) Urine RBC 0-2 (0-2) /HPF Urine WBC 6-10 H (0-5) /HPF Ur Squamous Epith Cells 0-2 (0-2) /HPF Urine Bacteria None Seen (None Seen) Hyaline Casts 0-2 (0-2) /LPF <Amparo Houser MD - Last Filed: 09/18/22 19:59> Discharge Plan Discharge Clinical Impression: Pyelonephritis, Bacteremia <AVANI Quinteros - Last Filed: 09/18/22 18:47> Patient Disposition: Admitted As Inpatient <AVANI Quinteros - Last Filed: 09/18/22 18:47> Prescriptions: No Action ibuprofen 400 mg tablet 400 mg PO Q6H PRN (Reason: pain) Qty: 20 0RF sulfamethoxazole-trimethoprim [Bactrim DS] 800-160 mg tablet 1 tab PO BID 10 Days Qty: 20 0RF ondansetron 4 mg tablet,disintegrating 4 mg PO TID PRN (Reason: nausea and vomiting) 5 Days Qty: 10 0RF <AVANI Quinteros - Last Filed: 09/18/22 18:47>
[2022-09-18 17:45] LABS: MANUAL DIFF FLAG NO
[2022-09-18 17:50] LABS: Basophils Percent Auto 0.4 % (0-2); Eosinophils Percent Auto 0.4 % (0-4); Hematocrit 37.2 % (37.0-47.0); Hemoglobin 12.1 g/dl (12.0-16.0); Imm Gran Abs Auto 0.02 X10*3/uL (0.00-0.03); Imm Gran Pct Auto 0.2 % (0.0-0.4); Lymphocytes Absolute Auto 1.3 X10*3/uL (1.2-4.9); Lymphocytes Percent Auto 14.3 % (20-40); Mean Corpuscular HGB Conc 32.5 g/dl (31.0-35.0); Mean Corpuscular Hemoglobin 27.1 pg (27.0-33.0); Mean Corpuscular Volume 83.2 fL (80.0-98.0); Mean Platelet Volume 10.8 fL (9.4-12.3); Monocytes Absolute Auto 0.7 X10*3/uL (0.1-1.2); Monocytes Percent Auto 7.6 % (2-11); Neutrophils Absolute Auto 7.1 x10*3/uL (2.0-8.3); Neutrophils Percent Auto 77.1 % (45-73); Platelet Count 233 X10*3/uL (160-400); Red Blood Count 4.47 X10*6/uL (4.20-5.50); Red Cell Distribution Width 14.7 % (11.0-16.0); White Blood Count 9.2 X10*3/uL (4.8-10.8)
[2022-09-18 18:05] LABS: Appearance Urine Clear; Color Urine Yellow; Glucose Urine UA Negative (Negative); Leukocyte Esterase Urine Small (1+) (Negative); Nitrite Urine Negative (Negative); PH 8.5 (5.0-9.0); UMIC TRIGGER UACC YES; Urine Blood Negative (Negative); Urine Ketones Negative (Negative); Urine Protein Negative (Neg-Trace)
[2022-09-18 18:05] LABS: Lactic Acid 0.9 mmol/L (0.5-2.0)
[2022-09-18 18:06] LABS: Alanine Aminotransferase 20 U/L (0-31); Albumin Level 3.9 g/dL (3.5-5.0); Alkaline Phosphatase 76 U/L (39-117); Anion Gap 14 (12-20); Aspartate Amino Transferase 16 U/L (5-31); Bilirubin Total 0.6 mg/dL (0.0-1.0); Blood Urea Nitrogen 7 mg/dL (9-16); Calcium 8.4 mg/dL (8.4-10.2); Carbon Dioxide 23 mmol/L (22-29); Chloride 104 mmol/L (96-108); Creatinine Clr Calc Pharmacy 166.3; Estimated Glomerular Filt Rate > 60; Glucose Random 104 mg/dL (60-115); Magnesium 1.9 mg/dL (1.6-2.6); Potassium 3.8 mmol/L (3.3-5.1); Sodium 137 mmol/L (135-145); Total Protein 6.3 g/dL (6.5-8.0)
[2022-09-18 18:23] LABS: Bacteria Urine None Seen (None Seen); Hyaline Casts Urine 0-2 /LPF (0-2); RBC Urine 0-2 /HPF (0-2); Squamous Epithelial Cell Urine 0-2 /HPF (0-2); UACC Culture Trigger YES
[2022-09-18] MEDS: 0.9 % Sodium Chloride 1,000 ML 999 ML IV (19:42)
--- NOTE | 2022-09-18 19:49 | P.HPHOSP_ITS ---
History of Present Illness Date of Service: 09/18/22 Chief Complaint: flank pain 22-year-old female with history of prediabetes, presents to the hospital with complaints of urinary symptoms including frequency, dysuria, and urgency. Patient was seen in the hospital on 09/17, diagnosed with pyelonephritis, and s ent home with Bactrim. Returns today stating that her symptoms are worsening. She has bilateral flank pain when initially she had on the right only. She is also complaining of suprapubic tenderness and persistent urinary symptoms. She reports chills, fatigue, nausea with no vomiting, rigors. reports no fever. No chest pain, no shortness of breath, no diarrhea constipation, and no lower extre mity edema. On arrival to the ED patient hemodynamically stable with a heart rate of 104 Labs are significant for WBC count of 9.2, UA remains positive for leukocyte Estrace and WBC blood cultures drawn on 09/17 grwoing gram negative rods patient started on IV antibiotics and be admitted for further management. Review of Systems Review of Systems: Yes all other systems are reviewed and are negative [facility]LY [facility] Medical History (Updated 09/18/22 @ 21:26 by Pancho Iniguez MD) Prediabetes Surgical History (Updated 09/18/22 @ 21:27 by Pancho Iniguez MD) No pertinent past surgical history Social History (Updated 09/18/22 @ 21:38 by Pancho Iniguez MD) Household Members: None and Other Household Members Other:: college room mate Housing: Apartment Do you presently have visiting nurse or other home services: No Alcohol intake: current Patient Tobacco Use Status: Never used Tobacco Use of substances other than those prescribed or required for medical reasons: Yes Substance Use Type: Marijuana Currently Displaying Signs/Symptoms of Drug Intoxication Withdrawal: No Have you been hit, kicked, punched, or otherwise hurt by someone within the past year? If so, by whom?: No Do you feel safe in your current relationship?: Yes Is there a partner from a previous relationship who is making you feel unsafe now?: No Are you made to feel afraid or neglected: No Advance Directives: No Advance Directives Information Provided: Yes Do you have thoughts of harming others: None Do you have a plan to hurt others: No Plan Recently lost weight without trying: Unsure Nutrition Risks: No Nutritional Risk Patient : No : No Poor oral hygiene: No Meds Allergies Allergy/AdvReac Type Severity Reaction Status Date / Time No Known Allergies Allergy Verified 09/17/22 17:02 Home Medications Medication Instructions Recorded Confirmed Last Taken Type fluoxetine 20 mg capsule 1 cap PO QAM 09/18/22 09/18/22 09/18/22 History norethindrone acetate 1.5 1 tab PO DAILY 09/18/22 09/18/22 09/18/22 History mg-ethinyl estradiol 30 mcg tablet () Physical Exam Vital Signs and Narrative: Vital Signs: Last Vital Signs Temp 98.8 F 09/18/22 17:13 Pulse 104 H 09/18/22 17:13 Resp 17 09/18/22 17:13 BP 126/60 09/18/22 17:13 Pulse Ox 98 09/18/22 17:13 O2 Del Method 09/18/22 17:13 BMI result Body Mass Index 44.4 Const: General: cooperative and no acute distress Orientation/consciousness: patient oriented x3 Eyes: General: appearance normal, both eyes and all related structures Resp: Effort & Inspection: normal respiratory effort Auscultation: clear to auscultation bilaterally Cardio: Rate: regular rate Rhythm: regular rhythm GI: Palpation (GI): Soft to palpation Auscultation: normal bowel sounds : Other: suprapubic tendernessss, right cva tenderness Skin: General skin exam: no rashes or lesions noted Neuro: General: patient oriented x3 Cognition (Neuro): normal cognition Extrem: General: Yes normal to inspection and Yes no pedal edema Results Labs 09/18/22 17:35 09/18/22 17:35 Labs: Laboratory Results - last 24 hr 09/18/22 09/18/22 09/18/22 17:35 17:35 17:35 MCV 83.2 MCH 27.1 MCHC 32.5 RDW 14.7 Plt Count 233 MPV 10.8 Immature Gran % (Auto) 0.2 Neut % (Auto) 77.1 H Lymph % (Auto) 14.3 L [place] % (Auto) 7.6 Eos % (Auto) 0.4 Baso % (Auto) 0.4 Lymph # (Auto) 1.3 [place] # (Auto) 0.7 Eos # (Auto) 0.0 Baso # (Auto) 0.0 Abs Immat Gran (auto) 0.02 Absolute Neuts (auto) 7.1 Absolute Nucleated RBC 0.000 Nucleated RBC % (auto) 0.0 Anion Gap 14 Estim Creat Clear Calc 166.3 Estimated GFR > 60 Random Glucose 104 Lactic Acid 0.9 Calcium 8.4 D Magnesium 1.9 Total Bilirubin 0.6 AST 16 ALT 20 Alkaline Phosphatase 76 Total Protein 6.3 L Albumin 3.9 Urine Color Urine Appearance Urine pH Ur Specific [place] Urine Protein Urine Glucose (UA) Urine Ketones Urine Blood Urine Nitrite Ur Leukocyte Esterase Urine RBC Urine WBC Ur Squamous Epith Cells Urine Bacteria Hyaline Casts 09/18/22 17:53 MCV MCH MCHC RDW Plt Count MPV Immature Gran % (Auto) Neut % (Auto) Lymph % (Auto) [place] % (Auto) Eos % (Auto) Baso % (Auto) Lymph # (Auto) [place] # (Auto) Eos # (Auto) Baso # (Auto) Abs Immat Gran (auto) Absolute Neuts (auto) Absolute Nucleated RBC Nucleated RBC % (auto) Anion Gap Estim Creat Clear Calc Estimated GFR Random Glucose Lactic Acid Calcium Magnesium Total Bilirubin AST ALT Alkaline Phosphatase Total Protein Albumin Urine Color Yellow Urine Appearance Clear Urine pH 8.5 Ur Specific [place] 1.010 Urine Protein Negative Urine Glucose (UA) Negative Urine Ketones Negative Urine Blood Negative Urine Nitrite Negative Ur Leukocyte Esterase Small (1+) H Urine RBC 0-2 Urine WBC 6-10 H Ur Squamous Epith Cells 0-2 Urine Bacteria None Seen Hyaline Casts 0-2 Assessment and Plan (1) Bacteremia: Status: Acute (2) Pyelonephritis: Status: Acute Plan 22-year-old female with past medical history of prediabetes who initially presented to the hospital on 09/17 with complaints of urinary symptoms, discharged on p.o. antibiotics, returns to the hospital with complaints of worsening flank pain as well as urinary track symptoms . also has positive few blood cultures # UTI/pyelonephritis - has bilateral flank pain, urinary symptoms, positive UA - CT of the abdomen done on 09/17 shows no evidence of pyelonephritis - given bacteremia as well as non resolving symptoms on p.o. antibiotics, p atient require treatment with IV antibiotics - follow cultures for sensitivity # bacteremia - positive cultures for Gram-negative rods - will treat with IV antibiotics pending final cultures DVT prophylaxis: Early ambulation given patient's need for IV antibiotics patient required minimum 2 nights inpatient hospital stay for further management and monitoring Time Spent With Patient Time: Total time managing care of this patient today ____ minutes. Quality Stroke Does the patient have a stroke diagnosis?: No VTE Prior VTE?: No VTE Risk Level:: Medical - moderate - high VTE Device Contraindication: Treatment Not Indicated VTE Drug Contraindication: N/A - Med Ordered
[2022-09-18] MEDS: cefTRIAXone sodium 1 GM in 0.9 % Sodium Chloride 50 ML IV (19:53)
--- NOTE | 2022-09-18 20:29 | PHA.MEDREC ---
Pharmacy Consult ? Medication Reconciliation Pharmacy has completed the medication reconciliation.
[2022-09-18] MEDS: Enoxaparin Sodium 40 MG/0.4 ML SYRINGE SUBCUT (20:33)
[2022-09-18 21:43] VITALS: BP 120/67; PULSE 93; RESP 18; TEMP 37; O2SAT 99
[2022-09-18] MEDS: ondansetron HCL 4 MG/2 ML VIAL IVPUSH (21:45)
[2022-09-18] MEDS: Acetaminophen 325 MG TABLET 650 MG PO (21:49)
[2022-09-18 22:22] LABS: COVID-19 Test Negative (Negative); IDNOW Serial# 6674DD1D
[2022-09-18 23:50] VITALS: BMI 45.1
[2022-09-19 00:02] VITALS: BP 116/61; PULSE 100; RESP 18; TEMP 36.4; O2SAT 97
[2022-09-19] MEDS: 0.9 % Sodium Chloride Flush 3 ML SYRINGE IVFLUSH ×4 (00:06→19:38)
[2022-09-19 04:00] VITALS: BP 127/61; PULSE 94; RESP 18; TEMP 36.9; O2SAT 100
[2022-09-19] MEDS: ondansetron HCL 4 MG/2 ML VIAL IVPUSH (04:33)
--- NOTE | 2022-09-19 04:33 | MHC.PIE ---
p; pt c/o nausea. note; prn zofran q8 given in ed at 2144 i; dr jackson notified; give early dose e; will cont to [facility]
[2022-09-19] MEDS: Acetaminophen 325 MG TABLET 650 MG PO ×2 (04:37→18:09)
[2022-09-19 06:24] LABS: MANUAL DIFF FLAG NO
[2022-09-19 06:34] LABS: Basophils Absolute Auto 0.1 X10*3/uL (0.0-0.2); Basophils Percent Auto 0.6 % (0-2); Eosinophils Percent Auto 0.4 % (0-4); Hematocrit 36.3 % (37.0-47.0); Hemoglobin 11.5 g/dl (12.0-16.0); Imm Gran Abs Auto 0.04 X10*3/uL (0.00-0.03); Imm Gran Pct Auto 0.4 % (0.0-0.4); Lymphocytes Absolute Auto 1.4 X10*3/uL (1.2-4.9); Lymphocytes Percent Auto 15.8 % (20-40); Mean Corpuscular HGB Conc 31.7 g/dl (31.0-35.0); Mean Corpuscular Hemoglobin 26.5 pg (27.0-33.0); Mean Corpuscular Volume 83.6 fL (80.0-98.0); Mean Platelet Volume 10.6 fL (9.4-12.3); Monocytes Absolute Auto 0.8 X10*3/uL (0.1-1.2); Monocytes Percent Auto 8.9 % (2-11); Neutrophils Absolute Auto 6.6 x10*3/uL (2.0-8.3); Neutrophils Percent Auto 73.9 % (45-73); Platelet Count 219 X10*3/uL (160-400); Red Blood Count 4.34 X10*6/uL (4.20-5.50); Red Cell Distribution Width 14.8 % (11.0-16.0)
[2022-09-19 06:49] LABS: Anion Gap 15 (12-20); Blood Urea Nitrogen 6 mg/dL (9-16); Calcium 8.3 mg/dL (8.4-10.2); Carbon Dioxide 21 mmol/L (22-29); Chloride 107 mmol/L (96-108); Creatinine Clr Calc Pharmacy 150.1; Estimated Glomerular Filt Rate > 60; Glucose Random 99 mg/dL (60-115); Sodium 139 mmol/L (135-145)
[2022-09-19 08:00] VITALS: BP 114/58; PULSE 84; RESP 18; TEMP 36.2; O2SAT 97
[2022-09-19] MEDS: Ketorolac Tromethamine 15 MG/ML VIAL IVPUSH ×2 (09:23→14:28)
--- NOTE | 2022-09-19 11:01 | HO.PM.IMPN ---
Subjective Subjective Date of Service: 09/19/22 Interval History: flank pain Physical Exam Vital Signs: Vital Signs: Last Vital Signs Temp 97.1 F 09/19/22 08:00 Pulse 84 09/19/22 08:00 Resp 18 09/19/22 08:00 BP 114/58 L 09/19/22 08:00 Pulse Ox 97 09/19/22 08:00 O2 Del Method 09/19/22 08:00 BMI result Body Mass Index 45.1 cva tenderness, fatigued Objective Data Active Medications Acetaminophen (Acetaminophen 325 Mg Tablet) 650 mg PO Q6H PRN PRN Reason: Pain, Mild (Pain Scale 1-3) Last Admin: 09/19/22 04:37 Dose: 650 mg Documented By: JASE Docusate Sodium (Docusate Sodium 100 Mg Capsule) 100 mg PO DAILY PRN PRN Reason: Constipation Enoxaparin Sodium (Enoxaparin Sodium 40 Mg/0.4 Ml Syringe) 40 mg SUBCUT Q24H COUNT INCLUDES THE [facility] Last Admin: 09/18/22 20:33 Dose: 40 mg Documented By: ALONDRA Ceftriaxone Sodium 1 gm/ (Sodium Chloride) 50 mls @ 100 mls/hr IV Q24H KALE Ondansetron HCl (Ondansetron Hcl 4 Mg/2 Ml Vial) 4 mg IVPUSH Q8H PRN PRN Reason: Nausea and Vomiting Last Admin: 09/19/22 04:33 Dose: 4 mg Documented By: JASE Comments: md damon early dose Pharmacy Consult (Consult Rx Perform Med Rec) 1 each MISCELLANE ONCE PRN PRN Reason: Consult order Sodium Chloride (0.9 % Sodium Chloride Flush 3 Ml Syringe) 3 ml IVFLUSH QSHIFT COUNT INCLUDES THE [facility] Last Admin: 09/19/22 09:23 Dose: 3 ml Documented By: [facility] 09/19/22 06:20 09/19/22 06:20 Labs: Laboratory Results - last 24 hr 09/18/22 09/18/22 09/18/22 17:35 17:35 17:35 MCV 83.2 MCH 27.1 MCHC 32.5 RDW 14.7 Plt Count 233 MPV 10.8 Immature Gran % (Auto) 0.2 Neut % (Auto) 77.1 H Lymph % (Auto) 14.3 L [place] % (Auto) 7.6 Eos % (Auto) 0.4 Baso % (Auto) 0.4 Lymph # (Auto) 1.3 [place] # (Auto) 0.7 Eos # (Auto) 0.0 Baso # (Auto) 0.0 Abs Immat Gran (auto) 0.02 Absolute Neuts (auto) 7.1 Absolute Nucleated RBC 0.000 Nucleated RBC % (auto) 0.0 Anion Gap 14 Estim Creat Clear Calc 166.3 Estimated GFR > 60 Random Glucose 104 Lactic Acid 0.9 Calcium 8.4 D Magnesium 1.9 Total Bilirubin 0.6 AST 16 ALT 20 Alkaline Phosphatase 76 Total Protein 6.3 L Albumin 3.9 Urine Color Urine Appearance Urine pH Ur Specific [place] Urine Protein Urine Glucose (UA) Urine Ketones Urine Blood Urine Nitrite Ur Leukocyte Esterase Urine RBC Urine WBC Ur Squamous Epith Cells Urine Bacteria Hyaline Casts COVID-19 ([facility]) COVID-19 Crisp Com 09/18/22 09/18/22 09/19/22 17:53 21:55 06:20 MCV 83.6 MCH 26.5 L MCHC 31.7 RDW 14.8 Plt Count 219 MPV 10.6 Immature Gran % (Auto) 0.4 Neut % (Auto) 73.9 H Lymph % (Auto) 15.8 L [place] % (Auto) 8.9 Eos % (Auto) 0.4 Baso % (Auto) 0.6 Lymph # (Auto) 1.4 [place] # (Auto) 0.8 Eos # (Auto) 0.0 Baso # (Auto) 0.1 Abs Immat Gran (auto) 0.04 H Absolute Neuts (auto) 6.6 Absolute Nucleated RBC 0.000 Nucleated RBC % (auto) 0.0 Anion Gap Estim Creat Clear Calc Estimated GFR Random Glucose Lactic Acid Calcium Magnesium Total Bilirubin AST ALT Alkaline Phosphatase Total Protein Albumin Urine Color Yellow Urine Appearance Clear Urine pH 8.5 Ur Specific [place] 1.010 Urine Protein Negative Urine Glucose (UA) Negative Urine Ketones Negative Urine Blood Negative Urine Nitrite Negative Ur Leukocyte Esterase Small (1+) H Urine RBC 0-2 Urine WBC 6-10 H Ur Squamous Epith Cells 0-2 Urine Bacteria None Seen Hyaline Casts 0-2 COVID-19 ([facility]) Negative COVID-19 Clin Com See Note 09/19/22 06:20 MCV MCH MCHC RDW Plt Count MPV Immature Gran % (Auto) Neut % (Auto) Lymph % (Auto) [place] % (Auto) Eos % (Auto) Baso % (Auto) Lymph # (Auto) [place] # (Auto) Eos # (Auto) Baso # (Auto) Abs Immat Gran (auto) Absolute Neuts (auto) Absolute Nucleated RBC Nucleated RBC % (auto) Anion Gap 15 Estim Creat Clear Calc 150.1 Estimated GFR > 60 Random Glucose 99 Lactic Acid Calcium 8.3 L Magnesium Total Bilirubin AST ALT Alkaline Phosphatase Total Protein Albumin Urine Color Urine Appearance Urine pH Ur Specific [place] Urine Protein Urine Glucose (UA) Urine Ketones Urine Blood Urine Nitrite Ur Leukocyte Esterase Urine RBC Urine WBC Ur Squamous Epith Cells Urine Bacteria Hyaline Casts COVID-19 ([facility]) COVID-19 Clin Com Assessment and Plan (1) Pyelonephritis: Status: Acute Plan 22F PMH preDM, morbid obesity, presented with bilateral flank pain, fatigue on 09/17/22, treated for uti/pyelo, called back in for bacteremia GNR UTI/pyelonephritis complicated by GNR bacteremia [place], follow up cultures preDM, morbid obesity weight loss recommended dvt prophylaxis - low risk, early ambulation full code reason for continued hospitalization:awaiting cultures Time Spent With Patient Time: Total time managing care of this patient today ____ minutes. Quality Stroke Does the patient have a stroke diagnosis?: No VTE Prior VTE?: No VTE Risk Level:: Medical - moderate - high VTE Device Contraindication: Treatment Not Indicated VTE Drug Contraindication: N/A - Med Ordered
[2022-09-19] MEDS: FLUoxetine HCl 20 MG CAPSULE PO (11:33)
--- NOTE | 2022-09-19 12:06 | MHC.CM.PN ---
met with pt and her mother .pt is a college student at [employer] she is independent cm intervention is not indicated
[2022-09-19 14:13] VITALS: TEMP 37.4
[2022-09-19 15:51] VITALS: BP 119/56; PULSE 74; RESP 14; TEMP 36; O2SAT 98
[2022-09-19] MEDS: cefTRIAXone sodium 1 GM in 0.9 % Sodium Chloride 50 ML IV (19:38)
[2022-09-19] MEDS: Enoxaparin Sodium 40 MG/0.4 ML SYRINGE SUBCUT (19:38)
[2022-09-19 20:00] VITALS: BP 134/68; PULSE 85; RESP 14; TEMP 37.2; O2SAT 97
[2022-09-19] MEDS: Docusate Sodium 100 MG CAPSULE PO (21:50)
[2022-09-19] MEDS: polyethylene glycoL 3350 17 GM POWD.PACK PO (21:54)
[2022-09-20 04:00] VITALS: BP 119/56; PULSE 84; RESP 18; TEMP 36.2; O2SAT 98
[2022-09-20] MEDS: Acetaminophen 325 MG TABLET 650 MG PO (04:33)
[2022-09-20 06:58] LABS: Hematocrit 37.3 % (37.0-47.0); Hemoglobin 11.9 g/dl (12.0-16.0); Mean Corpuscular HGB Conc 31.9 g/dl (31.0-35.0); Mean Corpuscular Hemoglobin 26.8 pg (27.0-33.0); Platelet Count 236 X10*3/uL (160-400); Red Blood Count 4.44 X10*6/uL (4.20-5.50); Red Cell Distribution Width 14.6 % (11.0-16.0); White Blood Count 9.3 X10*3/uL (4.8-10.8)
[2022-09-20 07:21] LABS: Anion Gap 16 (12-20); Blood Urea Nitrogen 7 mg/dL (9-16); Calcium 8.5 mg/dL (8.4-10.2); Carbon Dioxide 22 mmol/L (22-29); Chloride 108 mmol/L (96-108); Creatinine Clr Calc Pharmacy 170.3; Estimated Glomerular Filt Rate > 60; Glucose Fasting 98 mg/dL (60-99); Potassium 4.3 mmol/L (3.3-5.1); Sodium 142 mmol/L (135-145)
[2022-09-20 07:28] VITALS: BP 104/59; PULSE 58; RESP 18; TEMP 36.1; O2SAT 95
[2022-09-20] MEDS: polyethylene glycoL 3350 17 GM POWD.PACK PO (08:09)
[2022-09-20] MEDS: FLUoxetine HCl 20 MG CAPSULE PO (08:09)
[2022-09-20] MEDS: 0.9 % Sodium Chloride Flush 3 ML SYRINGE IVFLUSH (08:11)
--- NOTE | 2022-09-20 10:49 | PM.DS ---
DS: Providers Provider Date of Service: 09/20/22 Date of admission: 09/18/22 19:48 Primary care physician: Unknown Physician DS: Diagnosis Discharge Diagnosis (1) Pyelonephritis: Status: Acute (2) Bacteremia: Status: Acute DS: Summary Hospital Course Hospital Course: Admission note HPI ?22-year-old female with history of prediabetes, presents to the hospital with complaints of urinary symptoms including frequency, dysuria, and urgency.? Patient was seen in the hospital on 09/17, diagnosed with pyelonephritis, and sent home with Bactrim.? Returns today stating that her symptoms are worsening.? She has bilateral flank pain when initially she had on the right only.? She is also complaining of suprapubic tenderness and persistent urinary symptoms.? She reports chills, fatigue, nausea with no vomiting, rigors.? reports no fever.? No chest pain, no shortness of breath, no diarrhea constipation, and no lower extremity edema.? On arrival to the ED patient hemodynamically stable with a heart rate of 104 Labs are significant for? WBC count of 9.2, UA remains positive for leukocyte Estrace and WBC blood cultures drawn on 09/17 grwoing gram negative rods patient started on IV antibiotics and be admitted for further management. Hospital course The patient was admitted for treatment of pyelonephritis noted on admission. started on Ceftriaxone with good response as pain and fever improved. blood and urine cultures grew pansenitive E.Coli. The patient has new bottle of Bactrim and asked if she can take at home. she has 19 tabs left. continue Bactrim as prescribed previously to finish 10 days Advil as needed for pain Drink plenty of fluids Time Spent with Patient Time attestation: Total time managing care of this patient today ____ minutes. Discharge coordination time: Greater than 30 minutes Quality: Safe Use of Opioids Does Pt have an Active Cancer Diagnosis on the Problem List?: No Quality: Stroke Does the patient have a stroke diagnosis?: No Physical Exam Vital Signs: Vital Signs: Last Vital Signs Temp 96.9 F 09/20/22 07:28 Pulse 58 09/20/22 07:28 Resp 18 09/20/22 07:28 BP 104/59 L 09/20/22 07:28 Pulse Ox 95 09/20/22 07:28 O2 Del Method 09/20/22 07:28 BMI result Body Mass Index 45.1 Const: Other: Constitutional : Awake, interactive, obese, not in distress Neck : Normal inspection, Supple Cardiovascular : RRR, no JVP, no lower extremity edema Respiratory : good bilateral air entry, no crackles, wheezes or rhonchi Gastrointestinal: soft, lax, Normal bowel sounds, Non tender Skin : Warm, Dry Neurological : Alert & oriented x3, No focal deficit , CN 2-12 within normal DS: Data Data Completed and Pending Labs on day of discharge: Laboratory Results - last 24 hr 09/20/22 09/20/22 06:00 06:00 WBC 9.3 RBC 4.44 Hgb 11.9 L Hct 37.3 MCV 84.0 MCH 26.8 L MCHC 31.9 RDW 14.6 Plt Count 236 MPV 11.0 Absolute Nucleated RBC 0.000 Nucleated RBC % (auto) 0.0 Sodium 142 Potassium 4.3 Chloride 108 Carbon Dioxide 22 Anion Gap 16 BUN 7 L Creatinine 0.67 Estim Creat Clear Calc 170.3 Estimated GFR > 60 Fasting Glucose 98 Calcium 8.5 Preliminary micro results at discharge 09/18/22 17:35 Blood Culture - Preliminary Blood - Venous No growth after 24 hours. 09/18/22 17:35 Blood Culture - Preliminary Blood - Venous No growth after 24 hours. Discharge Plan Discharge Anticipated Discharge Date/Time: 09/20/22 10:44 Patient Disposition: Home, Self-Care Discharge Diagnosis: E.Coli bacteremia secondary to Pyelonephritis Referrals: Physician,Unknown J [Primary Care Provider] - 1 Week Discharge Medications: Continued norethindrone ac-eth estradiol [ ()] 1.5-30 mg-mcg tablet 1 tab PO DAILY fluoxetine 20 mg capsule 1 cap PO QAM Discharge Orders: Discharge Order (Routine); Ordered 09/20/22 Ordered By: Anna Marie Lin Diet: Advance to usual diet Activity on Discharge: As tolerated Stand Alone Forms: Patient Portal Discharge page, Work/School Release Care Plan Goals: Read below Health Concerns: Read below Plan of Treatment: Read below Assessment: You were admitted to the hospital for treatment of kidney infection. blood culture grew a sensitive bacteria called E.Coli. treated with IV Antibiotics with good response. You can continue Bactrim as prescribed previously to finish 10 days Advil as needed for pain Drink plenty of fluids
--- NOTE | 2022-09-20 11:03 | MHC.CM.PN ---
HOME - SELF CARE
== END 2022-09-20 11:30 | disposition home or self-care (01) | DRG 463 ==
LOC: HO.ED 19:59 → HO.EDOVER 20:02 → HO.S3 22:43
PROVIDERS: Internal Medicine; Physician Assistant; Admitting Provider Internal Medicine; Emergency Provider Emergency Medicine; Visit Provider Student in an Organized Health Care Education/Training Program
DX: N12 Tubulo-interstitial nephritis, not specified as acute or chronic (principal); R78.81 Bacteremia; Z68.42 Body mass index [BMI] 45.0-49.9, adult; R73.03 Prediabetes; E66.01 Morbid (severe) obesity due to excess calories; Z71.3 Dietary counseling and surveillance; B96.20 Unspecified Escherichia coli [E. coli] as the cause of diseases classified elsewhere; Z20.822 Contact with and (suspected) exposure to COVID-19; Z79.899 Other long term (current) drug therapy
CPT/HCPCS: 36415; 80048; 80053; 81001; 83605; 83735; 85025; 85027; 87040; 87635; 99285; J0696; J1650; J1885; J2405